=== PATIENT | male | born 1955 | race Hispanic/Latino ===

== ENCOUNTER 2019-09-08 16:04 | Emergency (ER) | payer OTHER ==
[~2019-09-08] VITALS: Ht 175.3 cm; Wt 123.4 kg
[2019-09-08] MEDS ORDERED: SODIUM CHLORIDE 0.9% 1000ML 1,000 ML IV STA (16:31)
[2019-09-08] MEDS ORDERED: KETOROLAC TROMETHAMINE 30 MG/ML VIAL IV STA (16:31)
--- NOTE | 2019-09-08 16:36 | Emergency Department Note ---
History of Present Illnes History of Present Illness Chief Complaint: Back Pain History of Present Illness This is a 64 year old male sudden onset of b/l flank pain R greater than Left . Denies f/c/n/v. . Historian: Patient Arrival Mode: Car Onset (how long ago): day(s) Location: b/l flank Radiation: Reports flank (r > L) Onset quality: sudden Duration (how long): day(s) Timing of current episode: constant Progression: worsening Context: Denies recent illness, Denies recent surgery, Denies recent immobilization, Denies recent travel, Denies trauma/injury, Denies new medications, Denies hx of DVT/PE, Denies non-compliance w/ medications, Denies other Relieving factors: immobilization, rest Exacerbating factors: movement Associated symptoms: Reports denies other symptoms Treatments prior to arrival: aspirin, other (advil tylenol) Past Medical/Family History Physician Review I have reviewed the patient's past medical and family history. Any updates have been documented here. Past Medical History Recent Fever: No Clinical Suspicion of Infectio: No New/Unexplained Change in Ment: No Past Medical History: Hypertension Other Medical History: ENLARGED PROSTATE BLADDER CA Past Surgical History: None Social History Smoking Cessation: Never Smoker Counseling Performed: No Alcohol Use: None Any Illegal Drug Use: No Physically hurt or threatened: No Other Any Pre-Existing Lines (PICC,: No Review of Systems Review of Systems Constitutional: Reports no symptoms EENTM: Reports no symptoms Cardiovascular: Reports no symptoms Respiratory: Reports no symptoms Gastrointestinal: Reports no symptoms Genitourinary: Reports hematuria, Reports pain (b/l flank) Musculoskeletal: Reports no symptoms Integumentary: Reports no symptoms Neurological: Reports tingling Psychological: Reports no symptoms Endocrine: Reports no symptoms Hematological/Lymphatic: Reports no symptoms Physical Exam Related Data Allergies: Coded Allergies: No Known Allergies (Unverified , 09/08/19) Triage Vital Signs Vital Signs Date Time Temp Pulse Resp B/P (MAP) Pulse Ox O2 Delivery O2 Flow Rate FiO2 09/08/19 16:16 98.4 85 20 97 Room Air Vital signs reviewed: Yes Physical Exam CONSTITUTIONAL Constitutional: Present obese HENT HENT: Present normocephalic, Present atraumatic, Present oropharynx clear/moist, Present nose normal HENT L/R: Present left ext ear normal, Present right ext ear normal EYES Eyes: Reports PERRL, Reports conjunctivae normal NECK Neck: Present ROM normal PULMONARY Pulmonary: Present effort normal, Present breath sounds normal CARDIOVASCULAR Cardiovascular: Present regular rhythm, Present heart sounds normal, Present capillary refill normal, Present normal rate GASTROINTESTINAL Abdominal: Present left CVA tenderness, Present right CVA tenderness GENITOURINARY Genitourinary: Present exam deferred SKIN Skin: Present warm, Present dry MUSCULOSKELETAL Musculoskeletal: Present ROM normal NEUROLOGICAL Neurological: Present alert, Present oriented x 3, Present no gross motor or sensory deficits PSYCHOLOGICAL Psychological: Present mood/affect normal, Present judgement normal Results Laboratory Lab results reviewed: Yes Laboratory comments Laboratory Tests Test 09/08/19 16:21 White Blood Count 8.88 x10e3/uL (4.8-10.8) Red Blood Count 4.66 x10e6/uL (4.3-5.7) Hemoglobin 14.3 g/dL (14.0-18.0) Hematocrit 42.8 % (38.2-49.6) Mean Corpuscular Volume 91.8 fL (81-99) Mean Corpuscular Hemoglobin 30.7 pg (28-32) Mean Corpuscular Hemoglobin Concent 33.4 g/dL (31-35) Red Cell Distribution Width 13.5 % (11.7-14.4) Platelet Count 271 x10e3/uL (140-360) Neutrophils (%) (Auto) 48.5 % (38.7-80.0) Lymphocytes (%) (Auto) 38.2 % (18.0-39.1) Monocytes (%) (Auto) 9.1 % (4.4-11.3) Eosinophils (%) (Auto) 3.6 % (0.0-6.0) Basophils (%) (Auto) 0.3 % (0.0-1.0) Neutrophils # (Auto) 4.3 (2.1-6.9) Lymphocytes # (Auto) 3.4 (1.0-3.2) Monocytes # (Auto) 0.8 (0.2-0.8) Eosinophils # (Auto) 0.3 (0.0-0.4) Basophils # (Auto) 0.0 (0.0-0.1) Absolute Immature Granulocyte (auto 0.03 x10e3/uL (0-0.1) Urine Color Maranda (YELLOW) Urine Clarity Sl cloudy (CLEAR) Urine pH 6 (5 - 7) Urine Specific [place] 1.030 (1.010-1.025) Urine Protein 1+ (NEGATIVE) Urine Glucose (UA) Negative (NEGATIVE) Urine Ketones Trace (NEGATIVE) Urine Blood Large (NEGATIVE) Urine Nitrite Negative (NEGATIVE) Urine Bilirubin Negative (NEGATIVE) Urine Urobilinogen 0.2 mg/dL (0.2 - 1) Urine Leukocyte Esterase Trace (NEGATIVE) Urine RBC 21-50 /HPF (0-5) Urine WBC None /HPF (0-5) Urine Epithelial Cells None /LPF (NONE) Urine Bacteria Moderate /HPF (NONE) Sodium Level 139 mmol/L (136-145) Potassium Level 4.2 mmol/L (3.5-5.1) Chloride Level 105 mmol/L (98-107) Carbon Dioxide Level 26 mmol/L (22-29) Anion Gap 12.2 mmol/L (8-16) Blood Urea Nitrogen 18 mg/dL (7-26) Creatinine 0.87 mg/dL (0.72-1.25) Estimat Glomerular Filtration Rate > 60 ML/MIN (60-) BUN/Creatinine Ratio 21 (6-25) Glucose Level 97 mg/dL (74-118) Calcium Level 9.6 mg/dL (8.4-10.2) Total Bilirubin 0.3 mg/dL (0.2-1.2) Aspartate Amino Transf (AST/SGOT) 20 IU/L (5-34) Alanine Aminotransferase (ALT/SGPT) 27 IU/L (0-55) Alkaline Phosphatase 78 IU/L (40-150) Total Protein 7.7 g/dL (6.5-8.1) Albumin 3.5 g/dL (3.5-5.0) Globulin 4.2 g/dL (2.3-3.5) Albumin/Globulin Ratio 0.8 (0.8-2.0) Lipase 25 U/L (8-78) Imaging Imaging results reviewed: Yes Impressions [place] [address] Patient Name: CASSANDRA CHEUNG MR #: [id number] : 1955 Age/Sex: 64/M Req #: [id number] [facility] Physician: Ordered by: BALTA DOYLE DO Report #: [id number] Location: ER Room/Bed: Procedure: [id number] CT/CT ABDOMEN/PELVIS WO Exam Date: Exam Time: REPORT STATUS: Signed EXAM: CT Abdomen and Pelvis WITHOUT contrast INDICATION: Abdominal pain concerning for renal stone. COMPARISON: None. TECHNIQUE: Abdomen and pelvis were scanned utilizing a multidetector helical scanner from the lung base to the pubic symphysis without administration of IV contrast. Absence of intravenous contrast decreases sensitivity for detection of focal lesions and vascular pathology. Coronal and sagittal reformations were obtained. Routine protocol was performed. IV CONTRAST: None ORAL CONTRAST: None COMPLICATIONS: None RADIATION DOSE: Total DLP: 857.11 mGy*cm Estimated effective dose: (DLP x 0.015 x size factor) mSv CTDIvol has been reviewed. It is below the limits set by the Radiation Protocol Committee (RPC). Dose modulation, iterative reconstruction, and/or weight based adjustment of the mA/kV was utilized to reduce the radiation dose to as low as reasonably achievable. FINDINGS: LINES and TUBES: None. LOWER THORAX: There is bibasilar atelectasis. The base of the heart is normal. HEPATOBILIARY: There is a small centimeter hypodense lesion in the left hepatic lobe (series 3 image 40) too 2 small to characterize by CT and likely represent a small cyst. No additional hepatic lesions identified. No biliary ductal dilation. GALLBLADDER: Decompressed. No radio-opaque stones or sludge. SPLEEN: No splenomegaly. PANCREAS: No focal masses or ductal dilatation. ADRENALS: There is a 1 x 1 cm right adrenal nodule (HU -34) compatible with an acute adenoma. The left adrenal gland is normal. KIDNEYS/URETERS: No hydronephrosis. No cystic or solid mass lesions. No renal or ureteral stones. GI TRACT: No abnormal distention, wall thickening, or evidence of bowel obstruction. Appendix is normal. PELVIC ORGANS/BLADDER: The urinary bladder is not well-visualized, likely fully decompressed or surgically removed. There are post surgical changes of the prostate gland with haziness and fatty changes, likely fat necrosis. LYMPH NODES: No lymphadenopathy. VESSELS: Unremarkable. PERITONEUM / RETROPERITONEUM: No free air or fluid. BONES: Hyperdense focus within the right posteriorly iliac bone which likely represents a bone island. There is bilateral L5 pars defect with grade 1 anterolisthesis of L5 on S1. SOFT TISSUES: Unremarkable. IMPRESSION: 1. No evidence of nephrolithiasis or ureterolithiasis bilaterally. Nitroglycerin abdominal findings to extend the patient's symptoms were identified. 2. Right adrenal adenoma. 3. Urinary bladder is not well visualized, likely decompressed or surgically removed. Postsurgical changes of the prostate gland. Correlate with history of cystectomy and prostate surgery. Consider urology consultation for further delineation and management of these findings.. 4. Bilateral L5 pars defect with grade 1 retrolisthesis of L5 on S1. Signed by: Stephanie Hill MD on 09/08/2019 5:51 PM Dictated By: STEPHANIE HILL MD 50 Transcribed By: CHAD on 09/08/191750 COPY TO: BALTA DOYLE DO~ Assessment & Plan Medical Decision Making MDM 64 yom presents with abdominal pain. CBC, CMP, EKG, , UA and CTS ordered to evaluate for possible appendicitis, COVID-19 infection diverticulitis, UTI, kidney stone, perforated viscus, obstruction, ischemia, and biliary pathology. additional diagnosis considered is UTI, pyelonephritis, sciatica, spinal abscess Assessment & Plan Final Impression: (1) UTI (urinary tract infection) (2) Sciatica Depart Disposition: HOME, SELF-CARE Last Vital Signs Date Time Temp Pulse Resp B/P (MAP) Pulse Ox O2 Delivery O2 Flow Rate FiO2 09/08/19 16:16 98.4 85 20 97 Room Air Medications in the ED Sodium Chloride 1,000 ml @ 0 mls/hr Q0M STAT IV Last administered on 09/08/19at 17:05; Admin Dose 999 MLS/HR; Start 09/08/19 at 16:31; Stop 09/08/19 at 16:35; Status DC Ketorolac Tromethamine 30 mg ONCE STAT IV Last administered on 09/08/19at 17:05; Admin Dose 30 MG; Start 09/08/19 at 16:31; Stop 09/08/19 at 16:36; Status DC Morphine Sulfate 4 mg ONCE STAT IV Last administered on 09/08/19at 18:15; Admin Dose 4 MG; Start 09/08/19 at 18:07; Stop 09/08/19 at 18:11; Status DC BALTA DOYLE DO Sep 08, 2019 16:36
[2019-09-08 16:41] LABS: BASOPHILS % 0.3 % (0.0-1.0); EOSINOPHILS # (AUTO) 0.3 (0.0-0.4); EOSINOPHILS % 3.6 % (0.0-6.0); HEMATOCRIT 42.8 % (38.2-49.6); HEMOGLOBIN 14.3 g/dL (14.0-18.0); LYMPHOCYTES # (AUTO) 3.4 (1.0-3.2); LYMPHOCYTES % 38.2 % (18.0-39.1); MEAN CORPUSCULAR HEMOGLOBIN 30.7 pg (28-32); MEAN CORPUSCULAR HGB CONC 33.4 g/dL (31-35); MEAN CORPUSCULAR VOLUME 91.8 fL (81-99); MONOCYTES # (AUTO) 0.8 (0.2-0.8); MONOCYTES % 9.1 % (4.4-11.3); NEUTROPHILS # (AUTO) 4.3 (2.1-6.9); NEUTROPHILS % 48.5 % (38.7-80.0); PLATELET COUNT 271 x10e3/uL (140-360); RED BLOOD COUNT 4.66 x10e6/uL (4.3-5.7); RED CELL DISTRIBUTION WIDTH 13.5 % (11.7-14.4)
[2019-09-08 16:43] LABS: CLARITY,URINE SL CLOUDY (CLEAR); COLOR,URINE AMBER (YELLOW)
[2019-09-08 16:44] LABS: BILIRUBIN,URINE NEGATIVE (NEGATIVE); KETONES,URINE TRACE (NEGATIVE); LEUKOCYTE ESTERASE ,URINE TRACE (NEGATIVE); NITRITE,URINE NEGATIVE (NEGATIVE); PROTEIN,URINE DIPSTICK 1+ (NEGATIVE); URINE UROBILINOGEN 0.2 mg/dL (0.2 - 1)
[2019-09-08 16:56] LABS: BACTERIA,URINE MODERATE /HPF; RBC,URINE 21-50 /HPF (0-5)
[2019-09-08 17:02] LABS: ALANINE AMINOTRANSFERASE 27 IU/L (0-55); ALBUMIN 3.5 g/dL (3.5-5.0); ALBUMIN/GLOBULIN RATIO 0.8 (0.8-2.0); ALKALINE PHOSPHATASE 78 IU/L (40-150); ANION GAP 12.2 mmol/L (8-16); BLOOD UREA NITROGEN 18 mg/dL (7-26); BUN/CREATININE RATIO 21 (6-25); CALCIUM 9.6 mg/dL (8.4-10.2); CARBON DIOXIDE 26 mmol/L (22-29); CHLORIDE 105 mmol/L (98-107); CREATININE, SERUM 0.87 mg/dL (0.72-1.25); EST GLOMERULAR FILTRATION RATE > 60 ML/MIN (60-); GLUCOSE 97 mg/dL (74-118); LIPASE 25 U/L (8-78); POTASSIUM 4.2 mmol/L (3.5-5.1); SODIUM 139 mmol/L (136-145)
--- NOTE | 2019-09-08 17:54 | Diagnostic Imaging Report ---
EXAM: CT Abdomen and Pelvis WITHOUT contrast INDICATION: Abdominal pain concerning for renal stone. COMPARISON: None. TECHNIQUE: Abdomen and pelvis were scanned utilizing a multidetector helical scanner from the lung base to the pubic symphysis without administration of IV contrast. Absence of intravenous contrast decreases sensitivity for detection of focal lesions and vascular pathology. Coronal and sagittal reformations were obtained. Routine protocol was performed. IV CONTRAST: None ORAL CONTRAST: None COMPLICATIONS: None RADIATION DOSE: Total DLP: 857.11 mGy*cm Estimated effective dose: (DLP x 0.015 x size factor) mSv CTDIvol has been reviewed. It is below the limits set by the Radiation Protocol Committee (RPC). Dose modulation, iterative reconstruction, and/or weight based adjustment of the mA/kV was utilized to reduce the radiation dose to as low as reasonably achievable. FINDINGS: LINES and TUBES: None. LOWER THORAX: There is bibasilar atelectasis. The base of the heart is normal. HEPATOBILIARY: There is a small centimeter hypodense lesion in the left hepatic lobe (series 3 image 40) too 2 small to characterize by CT and likely represent a small cyst. No additional hepatic lesions identified. No biliary ductal dilation. GALLBLADDER: Decompressed. No radio-opaque stones or sludge. SPLEEN: No splenomegaly. PANCREAS: No focal masses or ductal dilatation. ADRENALS: There is a 1 x 1 cm right adrenal nodule (HU -34) compatible with an acute adenoma. The left adrenal gland is normal. KIDNEYS/URETERS: No hydronephrosis. No cystic or solid mass lesions. No renal or ureteral stones. GI TRACT: No abnormal distention, wall thickening, or evidence of bowel obstruction. Appendix is normal. PELVIC ORGANS/BLADDER: The urinary bladder is not well-visualized, likely fully decompressed or surgically removed. There are post surgical changes of the prostate gland with haziness and fatty changes, likely fat necrosis. LYMPH NODES: No lymphadenopathy. VESSELS: Unremarkable. PERITONEUM / RETROPERITONEUM: No free air or fluid. BONES: Hyperdense focus within the right posteriorly iliac bone which likely represents a bone island. There is bilateral L5 pars defect with grade 1 anterolisthesis of L5 on S1. SOFT TISSUES: Unremarkable. IMPRESSION: 1. No evidence of nephrolithiasis or ureterolithiasis bilaterally. Nitroglycerin abdominal findings to extend the patient's symptoms were identified. 2. Right adrenal adenoma. 3. Urinary bladder is not well visualized, likely decompressed or surgically removed. Postsurgical changes of the prostate gland. Correlate with history of cystectomy and prostate surgery. Consider urology consultation for further delineation and management of these findings.. 4. Bilateral L5 pars defect with grade 1 retrolisthesis of L5 on S1. Signed by: Yesenia Ramos MD on 09/08/2019 5:51 PM
[2019-09-08] MEDS ORDERED: MORPHINE SULFATE INJ 4 MG/ML INJ 1ML IV STA (18:07)
== END 2019-09-08 18:44 | disposition home or self-care (01) ==
LOC: ER 16:35
DX: N39.0 Urinary tract infection, site not specified (principal); M54.32 Sciatica, left side; I10 Essential (primary) hypertension; Z85.51 Personal history of malignant neoplasm of bladder; N40.0 Benign prostatic hyperplasia without lower urinary tract symptoms
CPT/HCPCS: 36415; 74176; 80053; 81001; 83690; 85025; 99284; J1885; J2270; J7030

== ENCOUNTER → 2020-02-12 | Day surgery (SDC) | payer OTHER ==
[2020-02-09 12:02] LABS: BASOPHILS # (AUTO) 0.1 (0.0-0.1); BASOPHILS % 0.5 % (0.0-1.0); EOSINOPHILS # (AUTO) 0.3 (0.0-0.4); EOSINOPHILS % 2.4 % (0.0-6.0); HEMATOCRIT 46.2 % (38.2-49.6); HEMOGLOBIN 14.9 g/dL (14.0-18.0); LYMPHOCYTES # (AUTO) 3.8 (1.0-3.2); MEAN CORPUSCULAR HEMOGLOBIN 30.7 pg (28-32); MEAN CORPUSCULAR HGB CONC 32.3 g/dL (31-35); MEAN CORPUSCULAR VOLUME 95.1 fL (81-99); MONOCYTES # (AUTO) 0.8 (0.2-0.8); MONOCYTES % 7.9 % (4.4-11.3); NEUTROPHILS # (AUTO) 5.4 (2.1-6.9); NEUTROPHILS % 51.7 % (38.7-80.0); PLATELET COUNT 247 x10e3/uL (140-360); RED BLOOD COUNT 4.86 x10e6/uL (4.3-5.7); RED CELL DISTRIBUTION WIDTH 13.1 % (11.7-14.4)
[~2020-02-12] MED LIST: CEFTRIAXONE SOD 1 GM/NS 50 ML 50 ML IV ONE; DEXAMETHASONE SOD PHOS INJ 4 MG/ML VIAL ONE; FENTANYL CITRATE/PF 100MCG/2 ML INJ ONE; IOPAMIDOL 300MG/ML 50ML INFUS..BTL IV ONE; LIDOCAINE HCL 2% LOCAL INJ 5 ML SDV VIAL INJ ONE; MIDAZOLAM HCL 2 MG/2 ML VIAL ONE; ONDANSETRON HCL INJ 2MG/ML 2ML 2 MG/ML VIAL ONE; PROPOFOL IV EMULSION 10 MG/ML 20 ML VIAL ONE; PROSTATE MED PO; SEVOFLURANE INHAL SOLN 250 ML PEN BTL ONE; THYROID MED PO; VITAMIN D PO
[2020-02-12 10:15] VITALS: BP 137/80
== END | disposition home or self-care (01) ==
LOC: OR 06:49
PROVIDERS: ATTEND Urology
DX: N21.0 Calculus in bladder (principal); Z85.51 Personal history of malignant neoplasm of bladder; G47.33 Obstructive sleep apnea (adult) (pediatric); R00.1 Bradycardia, unspecified; Z01.810 Encounter for preprocedural cardiovascular examination; Z01.812 Encounter for preprocedural laboratory examination; Z20.828 Contact with and (suspected) exposure to other viral communicable diseases
CPT/HCPCS: 36415; 52214; 52317; 85025; 88300; 88305; 93005; J0696; J1100; J2001; J2250; J2405; J2704; J3010; U0002

== ENCOUNTER → 2020-09-16 | Day surgery (SDC) | payer OTHER ==
[2020-09-14 12:27] LABS: BASOPHILS % 0.4 % (0.0-1.0); EOSINOPHILS # (AUTO) 0.2 (0.0-0.4); EOSINOPHILS % 2.7 % (0.0-6.0); HEMATOCRIT 45.4 % (38.2-49.6); LYMPHOCYTES # (AUTO) 2.9 (1.0-3.2); LYMPHOCYTES % 36.3 % (18.0-39.1); MEAN CORPUSCULAR HEMOGLOBIN 30.6 pg (28-32); MEAN CORPUSCULAR VOLUME 92.7 fL (81-99); MONOCYTES # (AUTO) 0.8 (0.2-0.8); MONOCYTES % 9.3 % (4.4-11.3); NEUTROPHILS # (AUTO) 4.1 (2.1-6.9); NEUTROPHILS % 50.9 % (38.7-80.0); PLATELET COUNT 285 x10e3/uL (140-360); RED CELL DISTRIBUTION WIDTH 13.2 % (11.7-14.4)
[2020-09-14 12:43] LABS: CALCIUM 9.2 mg/dL (8.4-10.2); CREATININE, SERUM 0.9 mg/dL (0.72-1.25)
[~2020-09-16] MED LIST changes: +ACETAMINOPHEN/CODEINE 300MG - 30MG TAB ONE; +CEFTRIAXONE 1 GM VIAL ONE; -CEFTRIAXONE SOD 1 GM/NS 50 ML 50 ML IV ONE; +FINASTERIDE5 MG PO; +HYDROMORPHONE 1MG/1ML INJ ONE; +LIPITOR10 MG PO; +PHENYLEPHRINE HCL 1% 10 MG/ML VIAL ONE; +SODIUM CHLORIDE 0.9% 50ML 50 ML ONE; +VIT D PO
[2020-09-16 13:05] VITALS: BP 121/68
== END | disposition home or self-care (01) ==
LOC: OR 07:32
PROVIDERS: ATTEND Urology
DX: C67.9 Malignant neoplasm of bladder, unspecified (principal); N32.0 Bladder-neck obstruction; N40.0 Benign prostatic hyperplasia without lower urinary tract symptoms; G47.33 Obstructive sleep apnea (adult) (pediatric); E78.5 Hyperlipidemia, unspecified; K21.9 Gastro-esophageal reflux disease without esophagitis; R00.1 Bradycardia, unspecified; I45.10 Unspecified right bundle-branch block; Z01.810 Encounter for preprocedural cardiovascular examination; Z01.812 Encounter for preprocedural laboratory examination; Z20.822 Contact with and (suspected) exposure to COVID-19; Z68.41 Body mass index [BMI] 40.0-44.9, adult
CPT/HCPCS: 36415; 52235; 74420; 80048; 85025; 88305; 93005; J0696; J1100; J1170; J2001; J2250; J2370; J2405; J2704; J3010; Q9967; U0002